=== PATIENT | female | born 1975 | race Caucasian/White ===

== ENCOUNTER 2017-08-03 11:42 | Emergency (ER) | payer OTHER ==
[~2017-08-03] VITALS: Ht 167.6 cm; Wt 88.5 kg
[~2017-08-03 11:42] MED LIST: NOR10T PO; SER25 PO
[2017-08-03 11:47] VITALS: Ht 167.6 cm; Wt 88.5 kg
[2017-08-03 13:35] VITALS: BP 112/75
== END 2017-08-03 13:49 | disposition home or self-care (01) ==
LOC: ED 11:42
DX: B34.9 Viral infection, unspecified (principal)
CPT/HCPCS: J7613